=== PATIENT | female | born 1980 | race Caucasian/White ===

== ENCOUNTER 2017-03-31 08:38 | Emergency (ER) | payer OTHER ==
[2017-03-31 09:50] LABS: INFLUENZA A NEG (NEG); INFLUENZA B NEG (NEG)
== END 2017-03-31 11:29 | disposition home or self-care (01) ==
LOC: CED 08:38
PROVIDERS: Nurse Practitioner
DX: J06.9 Acute upper respiratory infection, unspecified (principal); F17.210 Nicotine dependence, cigarettes, uncomplicated; Z98.890 Other specified postprocedural states; Z98.51 Tubal ligation status
CPT/HCPCS: 87651; 87804; 94640; 99282; 99283

== ENCOUNTER 2017-06-05 21:39 | Emergency (ER) | payer OTHER ==
[~2017-06-05] VITALS: Ht 177.8 cm; Wt 92.5 kg
== END 2017-06-06 01:28 | disposition home or self-care (01) ==
LOC: CED 21:39 → CFTX 21:39
DX: S83.92XA Sprain of unspecified site of left knee, initial encounter (principal); S80.12XA Contusion of left lower leg, initial encounter; F17.210 Nicotine dependence, cigarettes, uncomplicated; W01.0XXA Fall on same level from slipping, tripping and stumbling without subsequent striking against object, initial encounter; Y92.009 Unspecified place in unspecified non-institutional (private) residence as the place of occurrence of the external cause
CPT/HCPCS: 29505; 73562; 99283